=== PATIENT | female | born 1950 | race Caucasian/White ===

== ENCOUNTER → 2024-01-26 12:56 | Outpatient (REF) | payer MEDICARE, OTHER, SELFPAY ==
[2024-01-26 15:49] LABS: Microalbumin, Random Urine 14.9 mg/dl (0.6-1.7)
[2024-01-26 15:52] LABS: ALT (SGPT) 19 U/L (0-35); AST (SGOT) 21 U/L (14-36); Albumin 4.2 g/dl (3.5-5.0); Alkaline Phosphatase 149 U/L (38-126); Blood Urea Nitrogen 27 mg/dl (7-17); Calcium 9.5 mg/dl (8.4-10.2); Carbon Dioxide 24 mmol/L (22-30); Chloride 103 mmol/L (98-107); Glucose 180 mg/dl (70-99); Potassium 4.9 mmol/L (3.5-5.1); Sodium 136 mmol/L (135-145); Total Bilirubin 0.5 mg/dl (0.2-1.3); Total Protein 6.8 g/dl (6.3-8.2); eGFR 31.27
[2024-01-26 16:31] LABS: Microalbumin/creatinine Ratio 36.8 mg/g
[2024-01-27 09:25] LABS: Glycohemoglobin (HgbA1c) 8.2 % (4.0-5.6)
== END ==
LOC: HWLAB 12:56
PROVIDERS: ATTENDING PHYSICIAN Nurse Practitioner
DX: E11.9 Type 2 diabetes mellitus without complications (principal); N18.32 Chronic kidney disease, stage 3b; R80.9 Proteinuria, unspecified
CPT/HCPCS: 36415; 80053; 82043; 82570; 83036

== ENCOUNTER → 2024-04-29 14:11 | Outpatient (REF) | payer MEDICARE, OTHER, SELFPAY | LOC: HWWDC 14:11 | PROVIDERS: ATTENDING PHYSICIAN Nurse Practitioner | DX: Z12.31 Encounter for screening mammogram for malignant neoplasm of breast (principal) | CPT/HCPCS: 77063; 77067 ==

== ENCOUNTER → 2024-06-20 11:58 | Outpatient (REF) | payer MEDICARE, OTHER, SELFPAY ==
[2024-06-20 16:42] LABS: % Basophils 0.6 % (0-2); % Eosinophils 3.1 % (0-6); % Immature Granulocytes 0.9 % (0-0.5); % Monocytes 6.3 % (1.7-9.3); % Neutrophils 76.1 % (42.2-75.2); Absolute Basophils 0.1 10^3/uL (0-0.2); Absolute Eosinophils 0.3 10^3/uL (0-0.7); Absolute Immature Granulocytes 0.1 10^3/uL (0-0.05); Absolute Monocytes 0.5 10^3/uL (0.1-0.6); Absolute Neutrophils 6.1 10^3/uL (1.4-6.5); Hematocrit 34.8 % (37.0-47.0); Hemoglobin 10.9 g/dL (12.0-16.0); Mean Corp Hgb Conc. 31.3 g/dL (33.0-37.0); Mean Corpuscular Hgb 22.6 pg (27.0-31.0); Mean Corpuscular Volume 72.2 fL (81.0-99.0); Mean Platelet Volume 10.6 fL (7.4-10.4); Nucleated Red Blood Cells % 0 %; Platelet Count 292 10^3/uL (130-400); Red Blood Cell Count 4.82 10^6/uL (4.20-5.40); Red Cell Dist. Width 15.9 % (11.5-14.5)
[2024-06-20 17:16] LABS: Blood Urea Nitrogen 24 mg/dl (7-17); Calcium 9.5 mg/dl (8.4-10.2); Carbon Dioxide 21 mmol/L (22-30); Chloride 104 mmol/L (98-107); Glucose 180 mg/dl (70-99); Iron 80 ug/dl (37-170); Potassium 4.6 mmol/L (3.5-5.1); Sodium 136 mmol/L (135-145); eGFR 39.23
[2024-06-20 17:27] LABS: Percent Saturation 25 % (20-50); Total Iron Binding Capacity 309 ug/dl (265-497)
[2024-06-20 17:32] LABS: Urine Albumin Trace (Neg - Trace); Urine Bilirubin 1+ (Negative); Urine Character Slightly Cloudy (Clear); Urine Color Amber; Urine Glucose Negative (Negative); Urine Ketone Trace (Negative); Urine Leukocyte 2+ (Negative); Urine Nitrite Positive (Negative); Urine Occult Blood Negative (Negative); Urine Specific Gravity 1.025 (<1.030); Urine Urobilinogen Negative (Neg - 1+)
[2024-06-20 17:33] LABS: TSH 2.12 uIU/ml (0.47-4.68)
[2024-06-20 17:37] LABS: Ferritin 38.5 ng/ml (11.1-264.0)
[2024-06-20 17:48] LABS: Urine Protein 21 mg/dl
[2024-06-20 17:54] LABS: Microalbumin, Random Urine 10.8 mg/dl (0.6-1.7)
[2024-06-20 18:40] LABS: Microalbumin/creatinine Ratio 23.4 mg/g
[2024-06-20 19:16] LABS: Urine Bacteria Many (Negative); Urine Squamous Cell >30 /LPF (Few); Urine White Cell 60-70 /HPF (0-5)
[2024-06-22 10:57] LABS: Intact PTH 38.3 pg/ml (13.6-85.8)
== END ==
LOC: HWLAB 11:58
PROVIDERS: ATTENDING PHYSICIAN Student in an Organized Health Care Education/Training Program; FAMILY PHYSICIAN Nurse Practitioner
DX: N18.32 Chronic kidney disease, stage 3b (principal); D56.3 Thalassemia minor; D56.9 Thalassemia, unspecified; E11.9 Type 2 diabetes mellitus without complications
CPT/HCPCS: 36415; 80048; 81003; 81015; 82043; 82570; 82728; 83540; 83550; 83970; 84156; 84443; 85025

== ENCOUNTER → 2024-07-20 10:28 | Outpatient (REF) | payer MEDICARE, OTHER, SELFPAY ==
[2024-07-20 12:31] LABS: % Basophils 0.4 % (0-2); % Eosinophils 3.3 % (0-6); % Immature Granulocytes 0.9 % (0-0.5); % Lymphocytes 14.9 % (20.5-51.1); % Monocytes 6.9 % (1.7-9.3); % Neutrophils 73.6 % (42.2-75.2); Absolute Eosinophils 0.2 10^3/uL (0-0.7); Absolute Immature Granulocytes 0.1 10^3/uL (0-0.05); Absolute Monocytes 0.5 10^3/uL (0.1-0.6); Absolute Neutrophils 4.9 10^3/uL (1.4-6.5); Hematocrit 34.3 % (37.0-47.0); Hemoglobin 11.1 g/dL (12.0-16.0); Mean Corp Hgb Conc. 32.4 g/dL (33.0-37.0); Mean Corpuscular Hgb 23.3 pg (27.0-31.0); Mean Corpuscular Volume 72.1 fL (81.0-99.0); Mean Platelet Volume 10.4 fL (7.4-10.4); Nucleated Red Blood Cells % 0 %; Platelet Count 266 10^3/uL (130-400); Red Blood Cell Count 4.76 10^6/uL (4.20-5.40); Red Cell Dist. Width 15.8 % (11.5-14.5); White Blood Cell Count 6.7 10^3/uL (4.8-10.8)
[2024-07-20 13:08] LABS: ALT (SGPT) 16 U/L (0-35); AST (SGOT) 21 U/L (14-36); Albumin 4.1 g/dl (3.5-5.0); Alkaline Phosphatase 141 U/L (38-126); Blood Urea Nitrogen 24 mg/dl (7-17); Calcium 9.4 mg/dl (8.4-10.2); Carbon Dioxide 22 mmol/L (22-30); Chloride 103 mmol/L (98-107); Glucose 193 mg/dl (70-99); HDL Cholesterol 42 mg/dl; LDL Cholesterol, Calculated 94 mg/dl; Potassium 4.5 mmol/L (3.5-5.1); Sodium 140 mmol/L (135-145); Total Bilirubin 0.5 mg/dl (0.2-1.3); Total Cholesterol 185 mg/dl (50-199); Total Protein 6.3 g/dl (6.3-8.2); Triglyceride 245 mg/dl (10-149); Very Low Density Lipoprotein 49 mg/dl (0-30); eGFR 42.88
[2024-07-20 15:17] LABS: Microalbumin, Random Urine 1.6 mg/dl (0.6-1.7); Microalbumin/creatinine Ratio 5.4 mg/g
== END ==
LOC: HWLAB 10:28
PROVIDERS: ATTENDING PHYSICIAN Nurse Practitioner
DX: E11.9 Type 2 diabetes mellitus without complications (principal); N18.32 Chronic kidney disease, stage 3b; R80.9 Proteinuria, unspecified; E78.2 Mixed hyperlipidemia
CPT/HCPCS: 36415; 80053; 80061; 82043; 82570; 83036; 85025

== ENCOUNTER → 2024-11-17 11:05 | Outpatient (REF) | payer MEDICARE, OTHER, SELFPAY ==
[2024-11-17 14:08] LABS: ALT (SGPT) 22 U/L (0-35); AST (SGOT) 21 U/L (14-36); HDL Cholesterol 41 mg/dl; LDL Cholesterol, Calculated 60 mg/dl; Total Cholesterol 166 mg/dl (50-199); Triglyceride 327 mg/dl (10-149); Very Low Density Lipoprotein 65 mg/dl (0-30)
== END ==
LOC: HWLAB 11:05
PROVIDERS: ATTENDING PHYSICIAN Internal Medicine
DX: E78.2 Mixed hyperlipidemia (principal)
CPT/HCPCS: 36415; 80061; 84450; 84460

== ENCOUNTER → 2025-01-17 13:45 | Outpatient (REF) | payer MEDICARE, OTHER, SELFPAY ==
[2025-01-17 15:26] LABS: HDL Cholesterol 46 mg/dl; LDL Cholesterol, Calculated 58 mg/dl; Total Cholesterol 156 mg/dl (50-199); Triglyceride 263 mg/dl (10-149); Very Low Density Lipoprotein 52 mg/dl (0-30)
[2025-01-18 08:31] LABS: Glycohemoglobin (HgbA1c) 9.6 % (4.0-5.6)
== END ==
LOC: HWLAB 13:45
PROVIDERS: ATTENDING PHYSICIAN Nurse Practitioner Family
DX: E11.65 Type 2 diabetes mellitus with hyperglycemia (principal)
CPT/HCPCS: 36415; 80061; 83036

== ENCOUNTER → 2025-02-09 09:14 | Outpatient (REF) | payer MEDICARE, OTHER, SELFPAY | LOC: RCS 09:14 | PROVIDERS: REFERRING PHYSICIAN Internal Medicine | DX: R42 Dizziness and giddiness (principal); I95.1 Orthostatic hypotension | CPT/HCPCS: 93306 ==

== ENCOUNTER → 2025-05-01 12:36 | Outpatient (REF) | payer MEDICARE, OTHER, SELFPAY ==
[2025-05-01 16:09] LABS: % Basophils 0.4 % (0-2); % Eosinophils 1.9 % (0-6); % Immature Granulocytes 0.9 % (0-0.5); % Lymphocytes 14.6 % (20.5-51.1); % Monocytes 6.3 % (1.7-9.3); % Neutrophils 75.9 % (42.2-75.2); Absolute Eosinophils 0.2 10^3/uL (0-0.7); Absolute Immature Granulocytes 0.1 10^3/uL (0-0.05); Absolute Lymphocytes 1.2 10^3/uL (1.2-3.4); Absolute Monocytes 0.5 10^3/uL (0.1-0.6); Absolute Neutrophils 6.1 10^3/uL (1.4-6.5); Hematocrit 34.7 % (37.0-47.0); Hemoglobin 10.7 g/dL (12.0-16.0); Mean Corp Hgb Conc. 30.8 g/dL (33.0-37.0); Mean Corpuscular Hgb 23.2 pg (27.0-31.0); Mean Corpuscular Volume 75.1 fL (81.0-99.0); Mean Platelet Volume 10.8 fL (7.4-10.4); Nucleated Red Blood Cells % 0 %; Platelet Count 345 10^3/uL (130-400); Red Blood Cell Count 4.62 10^6/uL (4.20-5.40); Red Cell Dist. Width 15.4 % (11.5-14.5); White Blood Cell Count 8.1 10^3/uL (4.8-10.8)
[2025-05-01 16:17] LABS: ALT (SGPT) 13 U/L (0-35); AST (SGOT) 19 U/L (14-36); Albumin 4.2 g/dl (3.5-5.0); Alkaline Phosphatase 58 U/L (38-126); Blood Urea Nitrogen 27 mg/dl (7-17); Calcium 9.8 mg/dl (8.4-10.2); Carbon Dioxide 24 mmol/L (22-30); Chloride 109 mmol/L (98-107); Glucose 144 mg/dl (70-99); HDL Cholesterol 43 mg/dl; Iron 82 ug/dl (37-170); LDL Cholesterol, Calculated 82 mg/dl; Potassium 4.5 mmol/L (3.5-5.1); Sodium 141 mmol/L (135-145); Total Bilirubin 0.4 mg/dl (0.2-1.3); Total Cholesterol 173 mg/dl (50-199); Total Protein 6.7 g/dl (6.3-8.2); Triglyceride 244 mg/dl (10-149); Very Low Density Lipoprotein 48 mg/dl (0-30); eGFR 27.03
[2025-05-01 16:26] LABS: Percent Saturation 17 % (20-50); Total Iron Binding Capacity 456 ug/dl (265-497)
[2025-05-01 16:51] LABS: Ferritin 83.5 ng/ml (11.1-264.0)
[2025-05-01 17:30] LABS: Folate 7.6 ng/ml (2.76-20); Vitamin B12 593 pg/ml (239-931)
[2025-05-01 17:31] LABS: Microalbumin, Random Urine 7.7 mg/dl (0.6-1.7)
[2025-05-02 09:35] LABS: Glycohemoglobin (HgbA1c) 8.9 % (4.0-5.6)
== END ==
LOC: HWLAB 12:36
DX: E11.9 Type 2 diabetes mellitus without complications (principal); E78.2 Mixed hyperlipidemia; R42 Dizziness and giddiness; D64.9 Anemia, unspecified; Z86.2 Personal history of diseases of the blood and blood-forming organs and certain disorders involving the immune mechanism; D56.3 Thalassemia minor
CPT/HCPCS: 36415; 80053; 80061; 82043; 82570; 82607; 82728; 82746; 83036; 83540; 83550; 85025

== ENCOUNTER → 2025-08-01 12:25 | Outpatient (REF) | payer MEDICARE, OTHER, SELFPAY ==
[2025-08-01 15:35] LABS: Hematocrit 33.7 % (37.0-47.0); Hemoglobin 10.3 g/dL (12.0-16.0); Mean Corp Hgb Conc. 30.6 g/dL (33.0-37.0); Mean Corpuscular Volume 72.8 fL (81.0-99.0); Nucleated Red Blood Cells % 0 %; Platelet Count 356 10^3/uL (130-400); Red Cell Dist. Width 16.0 % (11.5-14.5); Reticulocyte Count 1.3 % (0.4-2.8)
[2025-08-01 15:41] LABS: Iron 82 ug/dl (37-170)
[2025-08-01 15:51] LABS: Total Iron Binding Capacity 464 ug/dl (265-497)
[2025-08-01 16:17] LABS: Ferritin 113.0 ng/ml (11.1-264.0)
== END ==
LOC: HWLAB 12:25
PROVIDERS: ATTENDING PHYSICIAN Nurse Practitioner Primary Care
DX: D56.3 Thalassemia minor (principal); E61.1 Iron deficiency; D72.9 Disorder of white blood cells, unspecified
CPT/HCPCS: 36415; 82668; 82728; 83540; 83550; 85025; 85045

== ENCOUNTER → 2025-08-28 12:21 | Outpatient (REF) | payer MEDICARE, OTHER, SELFPAY ==
[2025-08-28 15:34] LABS: Hematocrit 34.6 % (37.0-47.0); Hemoglobin 10.4 g/dL (12.0-16.0); Mean Corp Hgb Conc. 30.1 g/dL (33.0-37.0); Mean Corpuscular Volume 73.6 fL (81.0-99.0); Nucleated Red Blood Cells % 0 %; Platelet Count 326 10^3/uL (130-400); Red Cell Dist. Width 15.9 % (11.5-14.5); Reticulocyte Count 1.1 % (0.4-2.8)
[2025-08-28 15:39] LABS: ALT (SGPT) 13 U/L (0-35); AST (SGOT) 19 U/L (14-36); Albumin 4.2 g/dl (3.5-5.0); Alkaline Phosphatase 60 U/L (38-126); Blood Urea Nitrogen 31 mg/dl (7-17); Calcium 9.6 mg/dl (8.4-10.2); Carbon Dioxide 25 mmol/L (22-30); Chloride 106 mmol/L (98-107); Glucose 129 mg/dl (70-99); HDL Cholesterol 42 mg/dl; Iron 119 ug/dl (37-170); LDL Cholesterol, Calculated 90 mg/dl; Potassium 4.5 mmol/L (3.5-5.1); Sodium 138 mmol/L (135-145); Total Protein 6.8 g/dl (6.3-8.2); Very Low Density Lipoprotein 38 mg/dl (0-30); eGFR 28.84
[2025-08-28 15:49] LABS: Total Iron Binding Capacity 452 ug/dl (265-497)
[2025-08-28 15:51] LABS: Microalb - Urine Creatinine 323.500 mg/dl
[2025-08-28 15:57] LABS: Microalbumin, Random Urine 7.7 mg/dl (0.6-1.7)
[2025-08-28 16:14] LABS: Ferritin 102.0 ng/ml (11.1-264.0)
[2025-08-28 16:45] LABS: Folate 5.9 ng/ml (2.76-20); Vitamin B12 525 pg/ml (239-931)
[2025-08-29 08:59] LABS: Glycohemoglobin (HgbA1c) 6.8 % (4.0-5.6)
== END ==
LOC: HWLAB 12:21
DX: I10 Essential (primary) hypertension (principal); E11.9 Type 2 diabetes mellitus without complications; K21.9 Gastro-esophageal reflux disease without esophagitis; E78.2 Mixed hyperlipidemia; I95.1 Orthostatic hypotension; R42 Dizziness and giddiness; N18.32 Chronic kidney disease, stage 3b; D56.3 Thalassemia minor; D64.9 Anemia, unspecified
CPT/HCPCS: 36415; 80053; 80061; 82043; 82570; 82607; 82668; 82728; 82746; 83036; 83540; 83550; 84443; 85025; 85045

== ENCOUNTER → 2025-10-23 10:51 | Outpatient (REF) | payer MEDICARE, OTHER, SELFPAY | LOC: HWRAD 10:51 | PROVIDERS: ATTENDING PHYSICIAN Internal Medicine | DX: N17.9 Acute kidney failure, unspecified (principal); K76.0 Fatty (change of) liver, not elsewhere classified | CPT/HCPCS: 76700 ==

== ENCOUNTER → 2025-10-27 13:51 | Outpatient (REF) | payer MEDICARE, OTHER, SELFPAY ==
[2025-10-27 14:58] LABS: Albumin 4.1 g/dl (3.5-5.0); Blood Urea Nitrogen 15 mg/dl (7-17); Calcium 9.6 mg/dl (8.4-10.2); Carbon Dioxide 25 mmol/L (22-30); Chloride 104 mmol/L (98-107); Glucose 134 mg/dl (70-99); Potassium 4.5 mmol/L (3.5-5.1); Sodium 137 mmol/L (135-145); eGFR 42.62
[2025-10-27 15:13] LABS: Urine Character Cloudy (Clear)
[2025-10-27 15:27] LABS: Cortisol, Random 10.0 ug/dl
[2025-10-27 15:27] LABS: Urine White Cell 80-90 /HPF (0-5)
== END ==
LOC: REG 13:51
PROVIDERS: ATTENDING PHYSICIAN Internal Medicine
DX: N17.9 Acute kidney failure, unspecified (principal); I95.1 Orthostatic hypotension
CPT/HCPCS: 36415; 80069; 81003; 81015; 82533; 82570; 84156